=== PATIENT | male | born 1975 | race Caucasian/White ===

== ENCOUNTER → 2016-12-17 | Outpatient (CLI) | payer OTHER ==
[~2016-12-17] MED LIST: CYCL-259 PO; HYDR-3240 PO
[2016-12-17 12:40] LABS: BLOOD UREA NITROGEN 24 mg/dL (7-18)
== END | disposition home or self-care (01) ==
LOC: STAR 11:32
PROVIDERS: ATTEND Neurological Surgery
DX: Z01.818 Encounter for other preprocedural examination (principal); M50.10 Cervical disc disorder with radiculopathy, unspecified cervical region; R79.1 Abnormal coagulation profile
CPT/HCPCS: 36415; 71020; 80048; 85025; 85610; 85730; 93005

== ENCOUNTER 2016-12-25 06:26 | Inpatient (IN) | payer OTHER ==
[2016-12-17 12:01] VITALS: BP 133/87
[~2016-12-25] VITALS: Ht 182.9 cm; Wt 98.9 kg
[2016-12-25] MEDS ORDERED: LACTATED RINGERS 1,000 ML IV SCH (06:45)
[2016-12-25] MEDS ORDERED: THROMBIN 20,000 UNIT VIAL TP ONE (06:58)
[2016-12-25] MEDS ORDERED: BUPIVACAINE/PF-EPI 0.5% 1:200K ONE (06:58)
[2016-12-25] MEDS ORDERED: BACITRACIN 50,000 UNIT ONE (06:59)
[2016-12-25] MEDS ORDERED: FENTANYL PF 250 MCG/5ML ONE (07:00)
[2016-12-25] MEDS ORDERED: MIDAZOLAM 1 MG/ML, 2ML ONE ×2 (07:00→10:59)
[2016-12-25] MEDS ORDERED: LIDOCAINE 1%, 2ML SQ PRN (07:00)
[2016-12-25] MEDS ORDERED: REMIFENTANIL 2 MG ONE ×2 (07:39→08:56)
[2016-12-25] MEDS ORDERED: KETAMINE 10 MG/ML, 20ML ONE (07:51)
[2016-12-25] MEDS ORDERED: DEXAMETHASONE 4 MG/ML, 1ML ONE (07:59)
[2016-12-25] MEDS ORDERED: CEFAZOLIN 1,000 MG ONE (07:59)
[2016-12-25] MEDS ORDERED: SUCCINYLCHOLINE 20 MG/ML, 10ML ONE (07:59)
[2016-12-25] MEDS ORDERED: PROPOFOL 10 MG/ML, 50ML ONE (07:59)
[2016-12-25] MEDS ORDERED: PROPOFOL 10 MG/ML, 20ML ONE (07:59)
[2016-12-25] MEDS ORDERED: ONDANSETRON 2MG/ML, 2ML ONE (07:59)
[2016-12-25] MEDS ORDERED: PROMETHAZINE 25 MG/ML, 1ML IV PRN (09:30)
[2016-12-25] MEDS ORDERED: ONDANSETRON 2MG/ML, 2ML IVPush PRN (09:30)
[2016-12-25] MEDS ORDERED: EPHEDRINE 50 MG/ML, 1ML IVPush PRN (09:30)
[2016-12-25] MEDS ORDERED: OXYcodone 5 MG/5 ML ORAL.SOL UDC PO PRN (09:30)
[2016-12-25] MEDS ORDERED: ACETAMINOPHEN 325 MG TABLET PO PRN (09:30)
[2016-12-25] MEDS ORDERED: LABETALOL 5MG/ML, 20ML IV PRN (09:30)
[2016-12-25] MEDS ORDERED: HYDROcodone/APAP 7.5-325MG/15ML UDC PO PRN (09:30)
[2016-12-25] MEDS ORDERED: MEPERIDINE/PF 25MG/0.5ML IVPush PRN (09:30)
[2016-12-25] MEDS ORDERED: MIDAZOLAM 1 MG/ML, 2ML IV PRN (09:30)
[2016-12-25] MEDS ORDERED: hydrALAzine 20 MG/ML, 1ML IV PRN (09:30)
[2016-12-25] MEDS ORDERED: FENTANYL PF 100 MCG/2ML ONE (09:48)
[2016-12-25] MEDS ORDERED: OXYcodone 5 MG/5 ML ORAL.SOL UDC ONE (09:49)
[2016-12-25] MEDS ORDERED: ACETAMINOPHEN 650 MG/20.3 ML UDC ONE (09:49)
[2016-12-25] MEDS: FENTANYL PF 100 MCG/2ML IV PRN ×2 (09:51→10:02)
[2016-12-25] MEDS ORDERED: HYDROmorphone 2 MG/ML, 1ML ONE (10:07)
[2016-12-25] MEDS: HYDROmorphone 1 MG/ML, 1ML IV PRN ×4 (10:09→10:49)
[2016-12-25] MEDS ORDERED: CYCLOBENZAPRINE 10 MG TABLET ONE (10:42)
[2016-12-25] MEDS ORDERED: CYCLOBENZAPRINE 10 MG TABLET PO PRN ×2 (11:00→12:00)
[2016-12-25] MEDS ORDERED: CYCLOBENZAPRINE 10 MG TABLET PO ONE (11:00)
[2016-12-25 11:30] VITALS: BP 136/88
[2016-12-25] MEDS ORDERED: ONDANSETRON 2MG/ML, 2ML IV PRN (12:00)
[2016-12-25] MEDS ORDERED: MAGNESIUM HYDROXIDE 8%, 30ML UDC PO PRN (12:00)
[2016-12-25] MEDS ORDERED: PROMETHAZINE 25 MG/ML, 1ML IM PRN (12:00)
[2016-12-25] MEDS ORDERED: HYDROcodone/APAP 5/325 TABLET PO PRN (12:00)
[2016-12-25] MEDS ORDERED: BISACODYL 10 MG SUPP PR PRN (12:00)
[2016-12-25] MEDS: morphine SULFATE 10 MG/ML, 1ML IV PRN ×3 (12:31→20:55)
[2016-12-25 14:17] VITALS: BP_SYST 115; BP_SYST 131; BP_DIAS 73; BP_DIAS 85
[2016-12-25] MEDS: NS + 20MEQ KCL 1,000 ML IV SCH (14:32)
[2016-12-25] MEDS: DEXAMETHASONE 4 MG/ML, 1ML IV SCH ×2 (14:32→20:05)
[2016-12-25] MEDS: HYDROcodone/APAP 10/325 MG TABLET PO PRN ×3 (14:34→23:53)
[2016-12-25] MEDS: CEFAZOLIN PMX 2GM/50ML 50 ML IVPB SCH ×2 (16:48→23:54)
[2016-12-25 19:41] VITALS: BP 131/76
[2016-12-25] MEDS ORDERED: ZOLPIDEM 5MG TABLET PO PRN (21:00)
[2016-12-25 23:40] VITALS: BP 126/72
[2016-12-26] MEDS: morphine SULFATE 10 MG/ML, 1ML IV PRN ×2 (01:12→05:09)
[2016-12-26] MEDS: NS + 20MEQ KCL 1,000 ML IV SCH (01:53)
[2016-12-26] MEDS: DEXAMETHASONE 4 MG/ML, 1ML IV SCH ×3 (02:00→15:08)
[2016-12-26] MEDS: HYDROcodone/APAP 10/325 MG TABLET PO PRN ×5 (03:55→15:18)
[2016-12-26 07:55] VITALS: BP 128/76
[2016-12-26] MEDS ORDERED: KETOROLAC 30 MG/1 ML IVPush ONE (08:00)
[2016-12-26] MEDS ORDERED: KETOROLAC 30 MG/1 ML IVPush SCH (08:00)
[2016-12-26] MEDS ORDERED: methylPREDNISolone*ACETATE* 80 MG/ML IM ONE (08:00)
[2016-12-26] MEDS ORDERED: SENNA/DOCUSATE TABLET PO SCH (09:00)
[2016-12-26 15:18] VITALS: BP 148/67
[2016-12-26] MEDS ORDERED: METH4TAB2 PO (15:44)
== END 2016-12-26 15:58 | disposition home or self-care (01) | DRG 472 ==
LOC: ORIP 06:26 → 4NOR 11:30 → DCLOUNGE 12-26 15:35
PROVIDERS: ADMIT Neurological Surgery; ATTEND Neurological Surgery
PROC: 0RB30ZZ Excision of Cervical Vertebral Disc, Open Approach (ICD-10-PCS; 2016-12-25)
PROC: 00NW0ZZ Release Cervical Spinal Cord, Open Approach (ICD-10-PCS; 2016-12-25)
PROC: 0RG10A0 Fusion of Cervical Vertebral Joint with Interbody Fusion Device, Anterior Approach, Anterior Column, Open Approach (ICD-10-PCS; principal; 2016-12-25 08:00)
DX: M50.122 Cervical disc disorder at C5-C6 level with radiculopathy (principal); M50.022 Cervical disc disorder at C5-C6 level with myelopathy
CPT/HCPCS: 72040; C1713; J0690; J1100; J1170; J1885; J2250; J2405; J2704; J3010; J3480; J3490; C1778; J0330; J1040; J2270; J7120